=== PATIENT | male | born 1980 | race Caucasian/White ===

== ENCOUNTER 2025-07-07 18:44 | Emergency (ER) | payer SELFPAY ==
[2025-07-07 18:52] VITALS: BP 151/103; PULSE 72; RESP 18; TEMP 36.7; O2SAT 98; BMI 25.7
[2025-07-07 18:54] VITALS: BP 151/103; PULSE 78; RESP 20; O2SAT 96
[2025-07-07 19:00] VITALS: PULSE 75; O2SAT 96
--- NOTE | 2025-07-07 19:00 | CTR_ITS ---
PROCEDURE INFORMATION: Exam: CT Maxillofacial Without Contrast Exam date and time: 07/07/2025 7:06 PM Age: 45 years old Clinical indication: Injury or trauma; Other: Kicked by horse; Additional info: Forehead trauma, large lac, kicked by horse TECHNIQUE: Imaging protocol: Computed tomography of the face without contrast. Radiation optimization: All CT scans at this facility use at least one of these dose optimization techniques: automated exposure control; mA and/or kV adjustment per patient size (includes targeted exams where dose is matched to clinical indication); or iterative reconstruction. COMPARISON: CT head wo con* [id number] 07/07/2025 7:06 PM RADIATION DOSE METRICS: Total DLP (mGy-cm): 674.8 FINDINGS: Paranasal sinuses: There are few small mucous retention cysts in the right maxillary antrum. Paranasal sinuses are normally aerated and otherwise clear. Orbital cavities: Orbits are normal. Globes are unremarkable. Bones: No facial fracture is identified. Soft tissues: There is a small scalp hematoma in the frontal scalp. This bubble of the gas in the subcutaneous soft tissues of the frontal scalp which is likely due to laceration. Please correlate clinically. There is mild swelling of the right side of the bridge of the nose. CT/CT facial bones wo con* [id number] IMPRESSION: No facial fracture is identified.
--- NOTE | 2025-07-07 19:00 | CTR_ITS ---
PROCEDURE INFORMATION: Exam: CT Head Without Contrast Exam date and time: 07/07/2025 7:06 PM Age: 45 years old Clinical indication: Injury or trauma; Other: Kicked in head by horse TECHNIQUE: Imaging protocol: Computed tomography of the head without contrast. Radiation optimization: All CT scans at this facility use at least one of these dose optimization techniques: automated exposure control; mA and/or kV adjustment per patient size (includes targeted exams where dose is matched to clinical indication); or iterative reconstruction. COMPARISON: CT facial bones wo con* [id number] 07/07/2025 7:06 PM RADIATION DOSE METRICS: Total DLP (mGy-cm): 1128.9 FINDINGS: Brain: Normal. No hemorrhage. Unremarkable white matter. No mass effect. Cerebral ventricles: No ventriculomegaly. Paranasal sinuses: Visualized sinuses are unremarkable. No fluid levels. Mastoid air cells: Visualized mastoid air cells are well aerated. Bones: Unremarkable. No acute fracture. Soft tissues: There is a small focal scalp hematoma in the frontal scalp. There is a small bubble of gas within the subcutaneous soft tissues which could indicate a laceration. Please correlate with the clinical exam. CT/CT head wo con* [id number] IMPRESSION: 1. Small frontal scalp hematoma and possible laceration. 2. No acute intracranial finding.
--- NOTE | 2025-07-07 19:01 | W.ED.HEATRA ---
HPI - Head Injury General: Chief complaint: Head Injury Stated complaint: Laceration on forehead Time Seen by Provider: 07/07/25 18:55 Source: patient Mode of arrival: wheelchair Limitations: no limitations History of Present Illness: Patient is a 45-year-old male presents to ED today after he was kicked by a horse to his head. Patient denies LOC but states that the details of the event are hard to recall. Upon arrival, patient has a very large forehead laceration extending through his right eyebrow. He does complain of a minor headache. No neck pain. No other injuries noted. MD Complaint: head injury Onset (ago): hour(s) Mechanism of Injury: other (kicked by horse) Place: home Loss of Consciousness: unsure Location of injury: frontal Severity: moderate Radiation: none Other Injuries: none Associated symptoms: Reports no associated symptoms; Deny confusion, nausea, neck pain or vomiting Related Data Previous Rx's ?Medication ?Instructions ?Recorded amoxicillin 875 mg-potassium 1 tab PO BID #14 tabs 07/07/25 clavulanate 125 mg tablet hydrocodone 5 mg-acetaminophen 325 1 tab PO Q6H PRN pain #14 tabs 07/07/25 mg tablet ondansetron 4 mg disintegrating 4 mg PO Q8H PRN nausea and 07/07/25 tablet vomiting #14 tabs Allergies Allergy/AdvReac Type Severity Reaction Status Date / Time No Known Allergies Allergy Verified 07/07/25 18:54 Review of Systems Eyes: Denies: change in vision, blurry vision, eye discomfort, floaters or seeing flashes GI: Denies: nausea or vomiting Musc: Denies: neck pain Skin/Breast: Reports: other (forehead laceration) Neuro: Reports: headache(s); Denies: numbness in extremities, weakness in extremities, sensory changes, difficulty walking, dizziness, confusion, behavioral changes or difficulty communicating thoughts Physical Exam Const: COMMON NORMALS: no acute distress, average body habitus, patient oriented x3, no limitations, healthy appearing, alert and well nourished GENERAL APPEARANCE: cooperative ORIENTATION/CONSCIOUSNESS: Yes awake, Yes oriented to person, Yes oriented to place and Yes oriented to time HENMT: COMMON NORMALS: normocephalic, external ears normal, EAC's normal, TM's normal bilaterally and Normal external nose present HEAD & SCALP: normocephalic and laceration FACE & SINUS: laceration; no crepitus FACE & SINUS IMAGES:  1. 2. large forehead laceration extending through R eyebrow NOSE: Normal external nose present EXTERNAL EAR: Yes external ears normal and Yes mastoids normal EXTERNAL AUDITORY CANAL: EAC's normal TYMPANIC MEMBRANE: TM's normal bilaterally MOUTH: Normal oral and palatal mucosa present, lip normal, tongue normal and Normal salivary glands and ducts present Eye: COMMON NORMALS: Equal, round and reactive pupils present and EOMs intact bilaterally GENERAL EYE: appearance normal, both eyes and all related structures and normal light reflex PUPIL: Yes Equal, round and reactive pupils present DIRECT OPHTHALMOSCOPY: Yes normal light reflex OTHER: R eyebrow laceration Neck/C-Spine: COMMON NORMALS: full ROM CERVICAL SPINE: No Cervical spine tenderness Neuro: NOMAN COMA SCALE: document GCS findings [place] coma scale eye opening: Spontaneous [place] coma scale verbal response: Orientated [place] coma scale motor response: Obey commands [place] coma scale total score: 15 COMMON NORMALS: patient oriented x3, CN's II-XII intact bilaterally, moves all extremities, no focal motor deficits and no sensory deficits noted SENSORIUM/ORIENTATION: Yes alert, Yes oriented to person, Yes oriented to place and Yes oriented to time Skin: TRAUMA: laceration Procedures Laceration Laceration 1: Site: face Size (cm): 12 Description: flap, irregular and other (laceration extending through R eyebrow) Depth: simple, single layer Local Anesthetic: lidocaine 1% and with epi Amount of anesthesia used (mL): 6.0 Pre-repair: wound explored and irrigated extensively Skin layer closed with: nylon Size (cm): 4-0 Number of sutures: 14 Technique: simple, interrupted Subcutaneous layer closed with: vicryl Size: 4-0 Number of sutures: 6 Technique: simple, interrupted Course Vital Signs: Vital signs: Vital Signs Temperature 98.1 F 07/07/25 18:52 Pulse Rate 71 07/07/25 19:30 Respiratory Rate 20 H 07/07/25 18:54 Blood Pressure 151/103 07/07/25 18:54 Pulse Oximetry 97 07/07/25 19:30 Oxygen Delivery Me thod Room Air 07/07/25 19:30 MDM - Head Injury Medcial Decision Making CT imaging of his head and facial bones were obtained showing no acute fractures or intracranial hemorrhage. Large laceration was copiously irrigated and repaired as documented with good cosmetic outcome. Wound care/infection precautions discussed. Also discussed compression as area would be prone to develop hematoma/seroma. He was given IV Ancef prior to discharge only placed on prophylactic antibiotics. Tetanus updated. Differential Diagnosis Likely concussion without loss of consciousness, epidural hematoma, closed head injury, subarachnoid hematoma, postconcussion syndrome, subdural hematoma and concussion with loss of consciousness Medical Records I reviewed the patient's medical records. Lab Data 07/07/25 18:56 07/07/25 18:[address] 07/07/25 19:00 IMPRESSION: No facial fracture is identified. Head CT 07/07/25 19:00 IMPRESSION: 1. Small frontal scalp hematoma and possible laceration. 2. No acute intracranial finding. Laboratory Results WBC 4.11 10^3/uL (3.29-11.43) 07/07/25 18:56 RBC 4.76 10^6/uL (3.85-5.65) 07/07/25 18:56 Hgb 14.50 g/dL (11.27-16.99) 07/07/25 18:56 Hct 42.6 % (37-53) 07/07/25 18:56 MCV 89.5 fl (82-101) 07/07/25 18:56 MCH 30.5 pg (27-33) 07/07/25 18:56 MCHC 34.0 g/dL (30-55) 07/07/25 18:56 RDW 12.3 % (12.1-15.1) 07/07/25 18:56 Plt Count 220 10^3/cmm (157-399) 07/07/25 18:56 MPV 9.3 fL (7.4-10.4) 07/07/25 18:56 Neut % (Auto) 42.8 % 07/07/25 18:56 Lymph % (Auto) 38.7 % 07/07/25 18:56 [place] % (Auto) 15.1 % 07/07/25 18:56 Eos % (Auto) 2.9 % 07/07/25 18:56 Baso % (Auto) 0.5 % 07/07/25 18:56 Neut # (Auto) 1.76 10^3/uL (1.8-7.7) L 07/07/25 18:56 Lymph # (Auto) 1.6 10^3/uL (0.8-4.8) 07/07/25 18:56 [place] # (Auto) 0.6 10^3/uL (0.2-0.9) 07/07/25 18:56 Eos # (Auto) 0.1 10^3/uL (0.0-0.8) 07/07/25 18:56 Baso # (Auto) 0.0 10^3/uL (0.0-0.1) 07/07/25 18:56 Nucleated RBC % (auto) 0 % 07/07/25 18:56 Nucleated RBCs # 0.0 /100WBC 07/07/25 18:56 Sodium 141 mmol/L (136-145) 07/07/25 18:56 Potassium 4.0 mmol/L (3.5-5.1) 07/07/25 18:56 Chloride 103 mmol/L (98-107) 07/07/25 18:56 Carbon Dioxide 28 mmol/L (22-29) 07/07/25 18:56 Anion Gap 14.0 (5-19) 07/07/25 18:56 BUN 13 mg/dL (6-20) 07/07/25 18:56 Creatinine 0.8 mg/dL (0.7-1.2) 07/07/25 18:56 GFR Calculation 104.5 mL/min (90-130) 07/07/25 18:56 Glucose 98 mg/dL (65-115) 07/07/25 18:56 Calculated Osmolality 292 mOsm/kg (285-295) 07/07/25 18:56 Calcium 9.0 mg/dL (8.5-10.5) 07/07/25 18:56 Total Bilirubin 0.7 mg/dL (0.15-1.2) 07/07/25 18:56 AST 40 U/L (0-40) 07/07/25 18:56 ALT 29 U/L (0-41) 07/07/25 18:56 Alkaline Phosphatase 45 U/L (40-130) 07/07/25 18:56 Total Protein 7.2 g/dL (6.6-8.7) 07/07/25 18:56 Albumin 4.2 g/dL (3.5-5.2) 07/07/25 18:56 Globulin 3.0 g/dL (1.3-4.6) 07/07/25 18:56 All radiology interpretation(s) finalized by discharge Discharge Plan Discharge Patient Disposition: Home Clinical Impression: Laceration of eyebrow and forehead Qualifiers: Encounter type: initial encounter Laterality: right Qualified Code(s): S01.81XA - Laceration without foreign body of other part of head, initial encounter Head injury Qualifiers: Encounter type: initial encounter Qualified Code(s): S09.90XA - Unspecified injury of head, initial encounter Condition: Stable Prescriptions: New hydrocodone-acetaminophen 5-325 mg tablet 1 tab PO Q6H PRN (Reason: pain) Qty: 14 0RF ondansetron 4 mg tablet,disintegrating 4 mg PO Q8H PRN (Reason: nausea and vomiting) Qty: 14 0RF amoxicillin-pot clavulanate 875-125 mg tablet 1 tab PO BID Qty: 14 0RF Discharge Orders: Discharge ED (Routine); Ordered 07/07/25 Ordered By: Milady Arrington Patient Instructions: Facial Laceration (ED), Opioid Safety, Pain Management, Patient Portal & [facility] Instructions Activity Restrictions/Additional Instructions: As we discussed, imaging of your face and head did not reveal any skull fracture or brain bleed. Extensive forehead laceration was repaired here in the emergency department. You need to keep wound clean with warm soap and water multiple times daily and watch for signs of infection which would include worsening pain, swelling, purulent or odorous drainage, overlying redness or warmth to the area, fevers, or any other concerns you may have. Please seek medical reevaluation of these occur. Sutures will need to be removed in approximately 10 days. We discussed compression bandages to the area to help avoid development of a hematoma/seroma which is fluid that can develop underneath the skin. Fill your pain/nausea meds and antibiotics tomorrow as we discussed. Print Language: Nicaraguan Coding Level of Care Code ED Quality Specialist for Awilda Urias
[2025-07-07 19:10] LABS: Hematocrit 42.6 % (37-53); Hemoglobin 14.50 g/dL (11.27-16.99); Mean Corpuscular HGB Conc 34.0 g/dL (30-55); Mean Corpuscular Hemoglobin 30.5 pg (27-33); Mean Corpuscular Volume 89.5 fl (82-101); Nucleated Red Blood Cells % 0 %; Platelet Count 220 10^3/cmm (157-399); Red Blood Count 4.76 10^6/uL (3.85-5.65); White Blood Count 4.11 10^3/uL (3.29-11.43)
[2025-07-07] MEDS: tetanus-dipt-pertussis 0.5 mL SDV IM (19:22)
[2025-07-07 19:30] VITALS: PULSE 71; O2SAT 97
[2025-07-07 19:30] LABS: Alanine Aminotransferase 29 U/L (0-41); Albumin Level 4.2 g/dL (3.5-5.2); Alkaline Phosphatase 45 U/L (40-130); Anion Gap 14.0 (5-19); Aspartate Amino Transferase 40 U/L (0-40); Blood Urea Nitrogen 13 mg/dL (6-20); Calcium 9.0 mg/dL (8.5-10.5); Carbon Dioxide 28 mmol/L (22-29); Chloride 103 mmol/L (98-107); Creatinine Clr Calc Pharmacy 103.4702; Globulin 3.0 g/dL (1.3-4.6); Glucose 98 mg/dL (65-115); Osmolality Calculated 292 mOsm/kg (285-295); Potassium 4.0 mmol/L (3.5-5.1); Sodium 141 mmol/L (136-145); Total Protein 7.2 g/dL (6.6-8.7)
[2025-07-07] MEDS: ceFAZolin 1,000 mg SDV 1000 MG IVP (21:19)
[2025-07-07] MEDS: HYDROcodone-acetaminophen 7.5-325 mg Tablet 2 TAB PO (21:24)
[2025-07-07 21:30] VITALS: BP 151/103; PULSE 67; O2SAT 98
== END 2025-07-07 21:33 | disposition home or self-care (01) ==
PROVIDERS: Emergency Provider Physician Assistant
DX: S01.81XA Laceration without foreign body of other part of head, initial encounter (principal); W55.12XA Struck by horse, initial encounter
CPT/HCPCS: 12015; 70450; 70486; 80053; 85025; 90715; 96374; 99285; J0690; J9999